=== PATIENT | male | born 1985 | race Caucasian/White ===

== ENCOUNTER 2017-04-27 13:38 | Inpatient (IN) | payer MEDICAID ==
[~2017-04-27] VITALS: Ht 185.4 cm; Wt 73.3 kg
[2017-04-27] MEDS ORDERED: ZIPRASIDONE 20 MG INJ IM ONE ×2 (13:48→14:00)
[2017-04-27] MEDS ORDERED: PLEASE ENTER HEIGHT AND WEIGHT MC SCH (14:00)
[2017-04-27] MEDS ORDERED: DIVA-68 PO (14:12)
[2017-04-27] MEDS ORDERED: HYDR25TA11 PO (14:12)
[2017-04-27] MEDS ORDERED: AMOX875T PO (14:12)
[2017-04-27] MEDS ORDERED: SODIUM CHLORIDE 0.9% 1,000ML IVBOLUS ONE (14:30)
[2017-04-27 14:37] LABS: ASPARTATE AMINO TRANSFERASE 54 U/L (15-37); BLOOD UREA NITROGEN 32 mg/dL (7-18)
[2017-04-27 15:00] LABS: ACETAMINOPHEN < 2 mcg/mL (10-30)
[2017-04-27] MEDS: D5%-0.45% NACL 1,000 ML IV SCH ×6 (15:29→23:30)
[2017-04-27 20:16] VITALS: BP 120/79
[2017-04-27] MEDS ORDERED: DOCUSATE 100 MG CAPSULE PO PRN (20:30)
[2017-04-27] MEDS ORDERED: POLYETHYLENE GLYCOL 17 GM PACKET PO PRN (20:30)
[2017-04-27] MEDS ORDERED: OXYcodone IR 5MG TABLET PO PRN (20:30)
[2017-04-27] MEDS ORDERED: morphine SULFATE 10 MG/ML, 1ML IVPush PRN (20:30)
[2017-04-27] MEDS ORDERED: hydrALAzine 20 MG/ML, 1ML IVPush PRN (20:30)
[2017-04-27] MEDS ORDERED: ONDANSETRON 2MG/ML, 2ML IVPush PRN (20:30)
[2017-04-27] MEDS ORDERED: ACETAMINOPHEN 325 MG TABLET PO PRN (20:30)
[2017-04-27] MEDS ORDERED: ENALAPRILAT 1.25 MG/ML, 2ML IVPush PRN (20:30)
[2017-04-28] MEDS: D5%-0.45% NACL 1,000 ML IV SCH ×4 (01:30→10:57)
[2017-04-28 02:59] VITALS: BP 109/69
[2017-04-28 06:05] LABS: ASPARTATE AMINO TRANSFERASE 45 U/L (15-37); BLOOD UREA NITROGEN 21 mg/dL (7-18)
[2017-04-28 06:27] VITALS: BP 120/79
[2017-04-28 07:13] VITALS: BP 118/76
[2017-04-28 07:39] LABS: DAU SCREEN DISCLAIMER
[2017-04-28 07:51] LABS: PATH.CAST-FLAG NOT PRESENT; SPERM-FLAG NOT PRESENT; SRC-FLAG NOT PRESENT; XTAL-FLAG NOT PRESENT; YLC-FLAG NOT PRESENT
[2017-04-28 13:44] VITALS: BP 109/70
[2017-04-28 19:22] VITALS: BP 122/83
[2017-04-29 03:10] VITALS: BP 116/72
[2017-04-29 06:58] VITALS: BP 108/69
[2017-04-29 10:35] VITALS: BP 116/76
[2017-04-29] MEDS ORDERED: QUETIAPINE 25MG TABLET ONE (12:33)
[2017-04-29] MEDS ORDERED: QUETIAPINE 25MG TABLET PO ONE (13:00)
[2017-04-29 19:33] VITALS: BP 114/72
== END 2017-04-29 20:20 | DRG 896 ==
LOC: ED 14:14 → EDIP 15:08 → 3NE 19:49 → 3E 04-29 10:27
DX: F19.980 Other psychoactive substance use, unspecified with psychoactive substance-induced anxiety disorder (principal); N17.0 Acute kidney failure with tubular necrosis; F23 Brief psychotic disorder; E87.0 Hyperosmolality and hypernatremia; E86.0 Dehydration; F31.9 Bipolar disorder, unspecified; Z91.14 Patient's other noncompliance with medication regimen
CPT/HCPCS: 36415; 80053; 80061; 80164; 80307; 80329; 81001; 83036; 83735; 84439; 84443; 85025; 87086; 93005; 96360; 96372; J3486; G0480; J7030